=== PATIENT | female | born 1950 | race Caucasian/White ===

== ENCOUNTER 2017-12-06 17:51 | Emergency (ER) | payer MEDICARE ==
--- NOTE | 2017-12-06 18:07 | ERPHSYRPT ---
- History of Present Illness Time Seen by Provider: 12/06/17 18:04 Source: patient, family Exam Limitations: no limitations Patient Subjective Stated Complaint: pt states last pm she tripped over her dog and injured left hand and wrist. Triage Nursing Assessment: pt pink, warm, dry. left hand swollen. radial pulse present. Physician History: pt states last pm she tripped over her dog and injured left hand and wrist. Occurred: yesterday Method of Injury: fell Quality: intermittent Severity of Pain-Max: moderate Severity of Pain-Current: moderate Extremities Pain Location: forearm: left, wrist: left, hand: left Modifying Factors: Improves With: cold therapy Associated Symptoms: none Allergies/Adverse Reactions: niacin Allergy (Verified 12/06/17 18:03) Hx Tetanus, Diphtheria Vaccination/Date Given: Yes (up to date) Hx Influenza Vaccination/Date Given: No Hx Pneumococcal Vaccination/Date Given: No Immunizations Up to Date: Yes - Review of Systems Constitutional: No Symptoms Musculoskeletal: Deformity (left hand and wrist), Fall, Injury, Joint Redness, Joint Pain, Joint Swelling Skin: No Symptoms Neurological: No Symptoms - Past Medical History Pertinent Past Medical History: No - Past Surgical History Past Surgical History: No - Social History Smoking Status: Current every day smoker How long have you smoked: 40 Exposure to second hand smoke: No Drug Use: none Patient Lives Alone: No - Female History Hx Now: No - Nursing Vital Signs Nursing Vital Signs: Initial Vital Signs Temperature 98.8 F 12/06/17 18:02 Pulse Rate 84 12/06/17 18:02 Respiratory Rate 20 12/06/17 18:02 Blood Pressure 132/78 12/06/17 18:02 O2 Sat by Pulse Oximetry 97 12/06/17 18:02 Pain Scale Pain Intensity 8 - Physical Exam General Appearance: no apparent distress Eyes, Ears, Nose, Throat Exam: normal ENT inspection Elbow/Forearm Exam: soft tissue tenderness Wrist Exam: bone tenderness, deformity, limited ROM, soft tissue tenderness, swelling Hand Exam: soft tissue tenderness SpO2: 97 Oxygen Delivery: Room Air Procedures - Splinting Location of Splint: Left Type of Splint: Orthoglass Short Arm Splint Splint Applied By: ED Nurse Pre-Proc Neuro Vasc Exam: normal Post-Proc Neuro Vasc Exam: neurovascular intact - Course Nursing assessment & vital signs reviewed: Yes - Radiology Exams Left Hand X-ray Interpretation: Reviewed by me Forearm X-ray Interpretation: Reviewed by me Left Wrist X-ray Interpretation: Reviewed by me, Non-displaced Fracture Ordered Tests: Active Orders 24 hr Category Date Time Status Cold Application STAT Care 12/06/17 18:01 Active FOREARM Stat Exams 12/06/17 18:04 Ordered HAND (MINIMUM 3 VIEWS) Stat Exams 12/06/17 18:04 Ordered WRIST (MIN 3 VIEWS) Stat Exams 12/06/17 18:04 Ordered - Progress Progress: unchanged, pain not gone completely Counseled pt/family regarding: diagnosis, need for follow-up, rad results - Departure Time of Disposition: 18:26 Departure Disposition: Home Clinical Impression: Colles' fracture of left radius Qualifiers: Encounter type: initial encounter Fracture type: closed Qualified Code(s): S52.532A - Colles' fracture of left radius, initial encounter for closed fracture Condition: Stable Critical Care Time: No Referrals: KYLE COUCH [Primary Care Provider] - Instructions: Wrist Fracture Additional Instructions: LOLY LEWIS was seen on 12/06/17 n the Emergency Room. At that time you were treated for an emergent condition, during your visit Laboratory, Radiology and/or other procedures may have been ordered. It is very important that you follow-up with your Primary Care Physician KYLE COUCH within the next 24-48 hours to review your Emergency Room visit and the final results of testing that was ordered. Some test results such as Urine Cultures, Blood Cultures, and other cultures if ordered will not be finalized for 24-48 hours. If you do not have a Primary Care Provider please call the medical records department at [phone] to obtain a copy of your results or you may sign into our patient portal to obtain these results by visiting us @ [email or web address] and completing the following steps: 1. Click on the Patient Portal link 2. Click the Patient Self Enrollment Link to complete the enrollment form and entering your 3. Once the enrollment form is completed you will receive an email with a temporary ID and password at the email address you provided. 4. Next choose a user name and password. Your user name must be at least 4 characters long and your password must be at least 4 characters long. 5. Choose a security question from the list and provide your answer to the question. If you already have signed into the Health Portal you may access your Health Care Information 01/06 by the following steps: 1. Login to our website @ [email or web address] 2. Enter your original user name and password. FAQS The [facility] Health Portal is an online tool that contains your Lab Results, Radiology Reports, Visit History, Discharge Instructions and Health Summary Lab and Radiology Results will not be available for 72 hours on the portal. The Portal is a secure site, passwords are encryted and URLs are re-written so they cannot be copied and pasted. You and authorized family members are the only ones who can access your Portal. Also there is a timeout feature that protects your information if you leave the Portal page open. If you have technical difficulty please use the Contact Us link on the page this will allow you to submit any questions you have regarding the Portal or you may contact the Medical Record Department at [phone]. Prescriptions: Naproxen 375 mg [Naprosyn 375 mg] 375 mg PO Q8H #30 tablet
[2017-12-06 18:50] VITALS: BP 125/84; PULSE 80; O2SAT 96
--- NOTE | 2017-12-06 20:57 | XRAY ---
Indication: Pain and swelling following fall. Comparison: None 2 views of the left forearm demonstrates slightly impacted transverse fracture involving the distal metadiaphysis of the radius with soft tissue swelling and old nonunited ulnar styloid fracture. No other bony, articular, or soft tissue abnormalities.
--- NOTE | 2017-12-06 20:59 | XRAY ---
Indication: Pain and swelling following fall. Comparison: None 3 views of the left wrist demonstrates slightly impacted transverse fracture involving the distal metadiaphysis of the radius with soft tissue swelling, old nonunited ulnar styloid fracture, and old 5th proximal phalanx fracture. No other bony, articular, or soft tissue abnormalities.
--- NOTE | 2017-12-06 20:59 | XRAY ---
Indication: Pain and swelling following fall. Comparison: None 3 views of the left hand demonstrates slightly impacted transverse fracture involving the distal metadiaphysis of the radius with soft tissue swelling, old nonunited ulnar styloid fracture, and old 5th proximal phalanx fracture. No other bony, articular, or soft tissue abnormalities.
== END 2017-12-06 18:50 | disposition home or self-care (01) ==
LOC: ED 17:51
PROC: 2W3DX1Z Immobilization of Left Lower Arm using Splint (ICD-10-PCS; principal; 2017-12-06)
DX: S52.532A Colles' fracture of left radius, initial encounter for closed fracture (principal); W01.0XXA Fall on same level from slipping, tripping and stumbling without subsequent striking against object, initial encounter; Y92.9 Unspecified place or not applicable; Y99.9 Unspecified external cause status
CPT/HCPCS: 29126; 73090; 73110; 73130; 99283

== ENCOUNTER 2017-12-09 13:55 | Emergency (ER) | payer MEDICARE ==
--- NOTE | 2017-12-09 14:55 | ERPHSYRPT ---
- History of Present Illness Time Seen by Provider: 12/09/17 14:36 Source: patient Exam Limitations: no limitations Patient Subjective Stated Complaint: pain under left arm pt states she fell 3 days ago injuring area was seen in er though states pain under arm to ribs is getting worse. pt states hurts to take a deep breath Triage Nursing Assessment: to er c/o inury to left rib area. pt states fell 3 days ago and pain is increasing. pt has tenderness noted just below left axillary with no bruising noted. pt p/w/d resp easy and non labored. Physician History: 67-year-old white female who denies significant past medical history who was seen here on December 06, 2017 after having a fall was noted to have impacted transverse fractures involving the distal metaphysis of the radius of the left hand and an old ununited ulnar styloid fracture she also had an old fifth proximal phalanx fracture all on x-rays which were obtained on December 06, 2017 Patient was given a prescription for Naprosyn she states she did not fill this She arrives, her OCL is dirty on the left hand he states her left hand hurts and left forearm hurts. Patient also states she is having pain in her left ribs with breathing and movement and palpation. Past medical history patient denies. Past surgical history patient denies. Timing/Duration: day(s) (3 DAYS AGO) Severity: moderate Modifying Factors: Improves With: other (patient was given a prescription for Naprosyn but did not fill it) Associated Symptoms: other (pain left ribs left forearm left hand), No nausea, No vomiting, No abdominal pain, No shortness of breath, No heartburn, No diaphoresis, No cough, No chills, No chest pain, No fever, No headaches, No loss of appetite, No malaise, No rash, No syncope, No seizure, No weakness Allergies/Adverse Reactions: niacin Allergy (Verified 12/06/17 18:03) Hx Tetanus, Diphtheria Vaccination/Date Given: Yes (up to date) Hx Influenza Vaccination/Date Given: No Hx Pneumococcal Vaccination/Date Given: No - Review of Systems Constitutional: No Fever, No Chills Eyes: No Symptoms Ears, Nose, & Throat: No Symptoms Respiratory: Other (left rib pain), No Cough, No Dyspnea Cardiac: No Chest Pain, No Edema, No Syncope Abdominal/Gastrointestinal: No Abdominal Pain, No Nausea, No Vomiting, No Diarrhea Genitourinary Symptoms: No Dysuria Skin: Other (left hand pain left forearm pain left wrist pain) Neurological: No Dizziness, No Focal Weakness, No Sensory Changes Psychological: No Symptoms Endocrine: No Symptoms All Other Systems: Reviewed and Negative - Past Medical History Pertinent Past Medical History: No - Past Surgical History Past Surgical History: Yes Other Surgical History: unknown abd surgery - Social History Smoking Status: Current every day smoker How long have you smoked: 40 Exposure to second hand smoke: No Drug Use: none Patient Lives Alone: No - Nursing Vital Signs Nursing Vital Signs: Pain Scale Pain Intensity 10 - Physical Exam General Appearance: other (elderly-appearing white female alert oriented 3) Eye Exam: PERRL/EOMI Ears, Nose, Throat Exam: normal ENT inspection, TMs normal, pharynx normal, moist mucous membranes Neck Exam: normal inspection, non-tender, supple, full range of motion Respiratory Exam: normal breath sounds, other (pain with deep breathing left chest pain with palpation left chest) Cardiovascular Exam: regular rate/rhythm, normal heart sounds, normal peripheral pulses Gastrointestinal/Abdomen Exam: soft, normal bowel sounds, No tenderness, No mass Back Exam: normal inspection, normal range of motion, No CVA tenderness, No vertebral tenderness Extremity Exam: normal inspection, normal range of motion, pelvis stable Neurologic Exam: alert, oriented x 3, cooperative, normal mood/affect, nml cerebellar function, nml station & gait, sensation nml, No motor deficits Skin Exam: normal color, warm, dry, No rash Lymphatic Exam: No adenopathy SpO2 Interpretation: normal (98%) - Course Nursing assessment & vital signs reviewed: Yes - Radiology Exams Left Hand X-ray Interpretation: Discussed w/ radiologist, Other (x-ray left hand: Stable fractures involving the distal metadiaphysisof the radius and fifth proximal phalanx with new casting material. Also stable old nonunited ulnar styloid fracture. No New bony, articular, or soft tissue abnormalities.) Left Forearm X-ray Interpretation: Discussed w/ radiologist (X-ray left forearm distal radial and ulnar styloid fractures unchanged with respect to left hand exam December 06, 2017.no other bony, articular, or soft tissue abnormalities) Left Wrist X-ray Interpretation: Discussed w/ radiologist (X-ray left wrist: Distal radial , ulnar styloid and proximal fifth phalanx fracture unchanged with respect to left hand exam December 06, 2017.new overlyingCasting material.no other bony, articular, or soft tissue abnormalies) Chest X-ray Interpretation: Discussed w/ radiologist (chest x-ray: Impression: Stable , nonacute chest with chronic features) Left Ribs X-ray Interpretation: Discussed w/ radiologist (x-ray left ribs: Very minimally displaced acute fractures involving the lateral second/fourth/fifth/seventh ribs. Elsewhere mild osteopenia. Mild spinal degenerative spondylosis. And right lung base calcified granuloma) Ordered Tests: Active Orders 24 hr Category Date Time Status Splint STAT Care 12/09/17 16:08 Active CHEST 1 VIEW (PORTABLE) Stat Exams 12/09/17 14:50 Completed FOREARM Stat Exams 12/09/17 14:46 Completed HAND (MINIMUM 3 VIEWS) Stat Exams 12/09/17 14:46 Completed RIBS UNILATERAL Stat Exams 12/09/17 15:15 Completed WRIST (MIN 3 VIEWS) Stat Exams 12/09/17 14:46 Completed - Progress Progress: improved Progress Note: 12/09/17 14:53 This is a 67-year-old white female who arrives with complaint of pain in her left ribs left forearm left wrist left hand after falling 3 days ago. She was seen in this emergency room splint was placed on her left upper extremity left hand. She states she is here to have her hand rechecked she has sought follow-up with her family doctor or orthopedist she also states she is having pain in her left lateral ribs which can occur with breathing and moving and palpation. She was given a prescription for Naprosyn [address] Humphries she did not fill this medication. Will go ahead and obtain x-ray of the left ribs chest x-ray x-ray left forearm left hand left wrist. Anticipate will have to replace patient's OCL. 12/09/17 16:16 X-ray of the patient's left wrist left forearm left hand redemonstrates fractures of the distal radius ulnar styloid and proximal fifth phalanx Patient also with the rib fractures involving the left second/fourth/fifth/ seventh ribs. Patient's splint is covered in soot, will replace the splint it does appear that it has been pushed around somewhat. Will go ahead and write for [employer] for pain for this patient she has been advised to follow-up with [facility] Orth O clinic for her distal radius. She is also advised to follow-up with her family doctor. She does state that she has a doctor and Leo she might consider to follow- up with. Will give patient a minute limited amount of [place] for pain. - Departure Time of Disposition: 16:18 Departure Disposition: Home Clinical Impression: Accidental fall Qualifiers: Encounter type: subsequent encounter Qualified Code(s): W19.XXXD - Unspecified fall, subsequent encounter Left radial fracture Qualifiers: Encounter type: subsequent encounter Radius location: distal Fracture type: closed Fracture morphology: unspecified fracture morphology Fracture healing: with routine healing Qualified Code(s): S52.502D - Unspecified fracture of the lower end of left radius, subsequent encounter for closed fracture with routine healing Fracture of ulnar styloid Qualifiers: Encounter type: subsequent encounter Fracture type: closed Fracture alignment: nondisplaced Laterality: left Fracture healing: with nonunion Qualified Code(s) : S52.615K - Nondisplaced fracture of left ulna styloid process, subsequent encounter for closed fracture with nonunion Phalanx, proximal fracture of finger Qualifiers: Encounter type: subsequent encounter Finger: little finger Fracture type: closed Fracture alignment: nondisplaced Laterality: left Fracture healing: with routine healing Qualified Code(s): S62.647D - Nondisplaced fracture of proximal phalanx of left little finger, subsequent encounter for fracture with routine healing Multiple rib fractures Qualifiers: Encounter type: initial encounter Fracture type: closed Laterality: left Qualified Code(s): S22.42XA - Multiple fractures of ribs, left side, initial encounter for closed fracture Condition: Fair Critical Care Time: No Referrals: DOCTOR,NO FAMILY [Primary Care Provider] - Additional Instructions: Return home Ice and elevate your left hand 24-48 hours. [place] 5/325 #12 one orally every 4-6 hours as needed for pain. Cold packs to left ribs 24-48 hours. Avoid strenuous bending twisting lifting pushing pulling. Follow-up with your family doctor (list) Follow-up with [facility] orthopedic clinic. Return for acute distress or for severe symptoms Prescriptions: Hydrocodone/Acetaminophen [[place] 5-325 Tablet] 1 tab PO Q4-6HPRN PRN #12 tablet MDD 6 tablets PRN Reason: Pain
--- NOTE | 2017-12-09 15:29 | XRAY ---
Indication: Left-sided pain following fall 3 days ago. Comparison: October 27, 2016. Portable chest remains hyperinflated and clear with right base calcified granuloma. Heart and mediastinal structures within normal limits. Bony thorax intact again with mild osteopenia and degenerative changes. Impression: Stable nonacute chest with chronic features.
--- NOTE | 2017-12-09 15:31 | XRAY ---
Indication: Pain following fall 3 days ago. Comparison: None 2 views of the left ribs demonstrates very minimally displaced acute fractures involving the lateral 2nd/4th/5th/7th ribs. Elsewhere mild osteopenia, mild spinal degenerative spondylosis, and right lung base calcified granuloma.
--- NOTE | 2017-12-09 15:33 | XRAY ---
Indication: Pain following fall 3 days ago. Comparison: December 06, 2017. 3 views of the left hand demonstrates stable fractures involving the distal metadiaphysis of the radius and 5h proximal phalanx with new casting material. Also stable old nonunited ulnar styloid fracture. No new bony, articular, or soft tissue abnormalities.
--- NOTE | 2017-12-09 15:35 | XRAY ---
Indication: Pain following fall 3 days ago. Comparison: None. 2 views of the left forearm demonstrates distal radial and ulnar styloid fractures unchanged with respect to left hand exam December 06, 2017. New overlying casting material. No other bony, articular, or soft tissue abnormalities.
--- NOTE | 2017-12-09 15:48 | XRAY ---
Indication: Pain following fall 3 days ago. Comparison: None. 3 views of the left wrist demonstrates distal radial, ulnar styloid, and proximal 5h phalanx fractures unchanged with respect to left hand exam December 06, 2017. New overlying casting material. No other bony, articular, or soft tissue abnormalities.
[2017-12-09] MEDS ORDERED: NORCO 5/325 MG PO ONE (16:10)
[2017-12-09] MEDS ORDERED: NORCO 5/325 MG ONE (16:23)
[2017-12-09 16:42] VITALS: BP 135/79; PULSE 74
== END 2017-12-09 16:40 | disposition home or self-care (01) ==
LOC: ED 13:55
DX: S52.502D Unspecified fracture of the lower end of left radius, subsequent encounter for closed fracture with routine healing (principal); S52.615K Nondisplaced fracture of left ulna styloid process, subsequent encounter for closed fracture with nonunion; S62.647D Nondisplaced fracture of proximal phalanx of left little finger, subsequent encounter for fracture with routine healing; S22.42XA Multiple fractures of ribs, left side, initial encounter for closed fracture; W19.XXXD Unspecified fall, subsequent encounter; M85.88 Other specified disorders of bone density and structure, other site
CPT/HCPCS: 71045; 71100; 73090; 73110; 73130; 99284; L1830; A9270-GY

== ENCOUNTER 2020-01-30 13:00 | Emergency (ER) | payer MEDICARE ==
--- NOTE | 2020-01-30 14:00 | XRAY ---
Indication: Posterior head injury following fall 2 days ago. Multiple contiguous axial images obtained through the head without contrast. Comparison: None Age-appropriate global atrophy and minimal periventricular degenerative micro-ischemia bilaterally. No acute intracranial hemorrhage, abnormal extra-axial fluid collection, or mass effect. Fourth ventricle is midline without hydrocephalus. Bony calvarium intact. Visualized paranasal sinuses and mastoid air cells are clear. Impression: Nonacute senile brain.
--- NOTE | 2020-01-30 14:01 | XRAY ---
Indication: Pain following fall 2 days ago. Comparison: None 2 views of the right forearm demonstrates minimally displaced comminuted fracture distal metadiaphysis of the radius with soft tissue swelling. Incidental tiny lateral epicondyle heterotopic calcifications presumed from old injury/inflammation. No other bony, articular, or soft tissue abnormalities.
--- NOTE | 2020-01-30 14:01 | XRAY ---
Indication: Pain following fall 2 days ago. Comparison: None 3 views of the right hand demonstrates minimally displaced comminuted fracture distal metadiaphysis of the radius with soft tissue swelling. No other bony, articular, or soft tissue abnormalities.
[2020-01-30 14:04] VITALS: BP 143/86; PULSE 76; O2SAT 98
[2020-01-30] MEDS ORDERED: NORCO 5/325 MG PO ONE (14:07)
[2020-01-30] MEDS ORDERED: NORCO 5/325 MG ONE (14:17)
--- NOTE | 2020-01-30 14:35 | ERPHSYRPT ---
- History of Present Illness Time Seen by Provider: 01/30/20 13:20 Patient Subjective Stated Complaint: pt reports yesterday she was walking her dog on a leash when the dog took off after another person outside causing her to fall. pt reports the dog drug her on the ground. pt reports she is sore all over with an injury to her right lower arm. pt reports pain to the hand that radiates to the mid forearm. pt denies any LOC or other injury. Triage Nursing Assessment: pt is aox3, pupils perrl, afebrile, resps easy and non labored, radial pulses strong and equal, cap refill < 3 seconds, pt skin warm dry. significant swelling to the right hand, pt is unable to close hand fully. ROM to fingers is limited due to swelling. bruising noted to the hand that radiates up to the bicep. pt hand appears dusky. hand is warm. Physician History: Is a 69-year-old white female who was walking her dog when the dog saw some strangers and pulled on the leash causing her to fall and hit her head on some rocks and injured her right arm. She does not believe she was unconscious she is not on blood thinners. This did occur several days ago. Occurred: yesterday Method of Injury: fell Quality: intermittent Severity of Pain-Max: moderate Severity of Pain-Current: moderate Extremities Pain Location: forearm: right, wrist: right, hand: right Modifying Factors: Improves With: movement Associated Symptoms: none Allergies/Adverse Reactions: niacin Allergy (Verified 01/30/20 13:35) Hx Tetanus, Diphtheria Vaccination/Date Given: Yes Hx Influenza Vaccination/Date Given: No Hx Pneumococcal Vaccination/Date Given: No Immunizations Up to Date: Yes Travel Risk - International Travel Have you traveled outside of the country in past 3 weeks: No Have you or anyone close to you been diagnosed with or: No Do your reside in a community with a known COVID-19 case?: No - Coronavirus Screening Has patient experienced Coronavirus symptoms: No - Review of Systems Constitutional: No Fever, No Chills Eyes: No Symptoms Ears, Nose, & Throat: No Symptoms Respiratory: No Cough, No Dyspnea Cardiac: No Chest Pain, No Edema, No Syncope Abdominal/Gastrointestinal: No Abdominal Pain, No Nausea, No Vomiting, No Diarrhea Genitourinary Symptoms: No Dysuria Musculoskeletal: Deformity, Fall, Injury, Joint Swelling, No Back Pain, No Neck Pain Skin: No Rash Neurological: No Dizziness, No Focal Weakness, No Sensory Changes Psychological: No Symptoms Endocrine: No Symptoms All Other Systems: Reviewed and Negative - Past Medical History Pertinent Past Medical History: No - Past Surgical History Past Surgical History: Yes Female Surgical History: Tubal Ligation Other Surgical History: unknown abd surgery - Social History Smoking Status: Current every day smoker How long have you smoked: 40 Exposure to second hand smoke: No Drug Use: none Patient Lives Alone: No - Nursing Vital Signs Nursing Vital Signs: Initial Vital Signs Temperature 98 F 01/30/20 13:14 Pulse Rate 87 01/30/20 13:14 Respiratory Rate 20 01/30/20 13:14 Blood Pressure 122/78 01/30/20 13:14 O2 Sat by Pulse Oximetry 97 01/30/20 13:14 Pain Scale Pain Intensity 10 - Physical Exam General Appearance: alert Eyes, Ears, Nose, Throat Exam: moist mucous membranes Neck Exam: non-tender, supple Cardiovascular/Respiratory Exam: chest non-tender, normal breath sounds, regular rate/rhythm, no respiratory distress Abdominal Exam: non-tender, No guarding Back Exam: normal inspection, No vertebral tenderness Shoulder Exam: normal inspection Elbow/Forearm Exam: bone tenderness (distal forearm right) Wrist Exam: bone tenderness, deformity (Tenderness and deformity of the right wrist) Hand Exam: swelling Neuro/Tendon Exam: normal sensation, normal motor functions Mental Status Exam: alert, oriented x 3, cooperative Skin Exam: normal color, warm, dry SpO2 Interpretation: normal SpO2: 98 O2 Delivery: Room Air Procedures - Splinting Location of Splint: Right, Wrist, Forearm Type of Splint: Orthoglass Short Arm Splint Splint Applied By: ED Nurse Pre-Proc Neuro Vasc Exam: normal Post-Proc Neuro Vasc Exam: neurovascular intact Progress: Post splinting was examined by the physician. - Course Nursing assessment & vital signs reviewed: Yes - Radiology Exams Wrist X-ray Interpretation: Interpreted by me, Other (X-rays of the forearm wrist and hand show fracture of the distal radius comminuted minimal angulation comminuted slightly impacted angulated distal right radius fracture) - CT Exams Head CT Interpretation: Negative Ordered Tests: Active Orders 24 hr Category Date Time Status FOREARM Stat Exams 01/30/20 13:32 Completed HAND (MINIMUM 3 VIEWS) Stat Exams 01/30/20 13:32 Completed HEAD WITHOUT CONTRAST [CT] Stat Exams 01/30/20 13:31 Completed Medication Summary Discontinued Medications Generic Name Dose Route Start Last Admin Trade Name Freq PRN Reason Stop Dose Admin Hydrocodone Bitart/Acetaminophen 1 tab 01/30/20 14:07 01/30/20 14:20 [place] 5/325 Mg PO 01/30/20 14:08 1 tab STAT ONE Administration Hydrocodone Bitart/Acetaminophen Confirm 01/30/20 14:17 [place] 5/325 Mg Administered 01/30/20 14:18 Dose 1 tab .ROUTE .STK-MED ONE - Progress Progress: improved - Departure Departure Disposition: Home Clinical Impression: Right wrist fracture Condition: Stable Critical Care Time: No Referrals: DOCTOR,NO FAMILY [Primary Care Provider] - Additional Instructions: Referred to Ortho clinic Prescriptions: Hydrocodone/APAP 5-325 Tab^^^ [[place] 5-325 Tablet^^^] 1 tab PO Q6HPRN PRN #10 tablet MDD 6 PRN Reason: Pain
== END 2020-01-30 14:44 | disposition home or self-care (01) ==
LOC: ED 13:00
DX: S62.101A Fracture of unspecified carpal bone, right wrist, initial encounter for closed fracture (principal); M79.631 Pain in right forearm; S09.90XA Unspecified injury of head, initial encounter; W01.198A Fall on same level from slipping, tripping and stumbling with subsequent striking against other object, initial encounter; Y93.K1 Activity, walking an animal; Y92.89 Other specified places as the place of occurrence of the external cause
CPT/HCPCS: 29126; 70450; 73090; 73130; 99284; A9270-GY

== ENCOUNTER 2020-03-29 15:34 | Emergency (ER) | payer MEDICARE ==
--- NOTE | 2020-03-29 15:46 | ERPHSYRPT ---
- History of Present Illness Time Seen by Provider: 03/29/20 15:46 Historian: patient Exam Limitations: no limitations Physician History: This is a 69-year-old thin female who states that she has been nauseated since yesterday. Patient denied to me that she been vomiting but then told the nurse that she did vomit. Patient states she is has no pain symptoms anywhere. She has no chest pain, she has no shortness of breath, she has no abdominal pain. She is had no diarrhea. She states that she is not on any medication. And arrives dirty and disheveled. Patient states that she has been working out in her yard and dirt in the last couple of days. Patient does not want any work- up of any kind. She refuses an IV, she refuses intravenous fluids, she refuses EKG or any kind of radiographic studies. She does not want any blood drawn or any urine samples evaluated. Only wants some relief of her symptoms of nausea. Timing/Duration: yesterday Activities at Onset: none Quality: other (No pain) Pain Radiation: no radiation Severity of Pain-Max: none Severity of Pain-Current: none Modifying Factors: Improves With: nothing Associated Symptoms: nausea, No chest pain, No diarrhea, No fever/chills, No headache, No heartburn, No loss of appetite, No shortness of breath Previous symptoms: no prior history Allergies/Adverse Reactions: niacin Allergy (Verified 03/29/20 16:13) Hx Tetanus, Diphtheria Vaccination/Date Given: Yes Hx Influenza Vaccination/Date Given: No Hx Pneumococcal Vaccination/Date Given: No Travel Risk - International Travel Have you traveled outside of the country in past 3 weeks: No Have you or anyone close to you been diagnosed with or: No Do your reside in a community with a known COVID-19 case?: Yes If Yes where:: [facility] - Coronavirus Screening Has patient experienced Coronavirus symptoms: No - Review of Systems Constitutional: No Symptoms Eyes: No Symptoms Ears, Nose, & Throat: No Symptoms Respiratory: No Symptoms Cardiac: No Symptoms Abdominal/Gastrointestinal: Nausea Genitourinary Symptoms: No Symptoms Musculoskeletal: No Symptoms Skin: No Symptoms Neurological: No Symptoms Psychological: No Symptoms Endocrine: No Symptoms Hematologic/Lymphatic: No Symptoms Immunological/Allergic: No Symptoms All Other Systems: Reviewed and Negative - Past Medical History Pertinent Past Medical History: No Neurological History: No Pertinent History ENT History: No Pertinent History Cardiac History: No Pertinent History Respiratory History: No Pertinent History Endocrine Medical History: No Pertinent History Musculoskeletal History: No Pertinent History GI Medical History: No Pertinent History History: No Pertinent History Psycho-Social History: No Pertinent History Female Reproductive Disorders: No Pertinent History - Past Surgical History Past Surgical History: Yes Neuro Surgical History: No Pertinent History Cardiac: No Pertinent History Respiratory: No Pertinent History Gastrointestinal: No Pertinent History Genitourinary: No Pertinent History Musculoskeletal: No Pertinent History Female Surgical History: Tubal Ligation Other Surgical History: unknown abd surgery - Social History Smoking Status: Current every day smoker How long have you smoked: 40 Exposure to second hand smoke: No Drug Use: none Patient Lives Alone: No - Nursing Vital Signs Nursing Vital Signs: Initial Vital Signs Temperature 97.0 F 03/29/20 15:57 Pulse Rate 93 H 03/29/20 15:57 Respiratory Rate 18 03/29/20 15:57 Blood Pressure 144/87 03/29/20 15:57 O2 Sat by Pulse Oximetry 97 03/29/20 15:57 Pain Scale Pain Intensity 0 - Physical Exam General Appearance: no apparent distress, alert, anxiety, cachetic, other ( Somewhat disheveled with dirty hands and feet as if she was in dirt and mild and did not clean herself.) Eye Exam: PERRL/EOMI, eyes nml inspection Ears, Nose, Throat Exam: TMs normal, dry mucous membranes Neck Exam: normal inspection, non-tender, supple, full range of motion Respiratory Exam: normal breath sounds, lungs clear, airway intact, No chest tenderness, No respiratory distress Cardiovascular Exam: regular rate/rhythm, normal heart sounds, normal peripheral pulses Gastrointestinal/Abdomen Exam: soft, normal bowel sounds, No tenderness, No guarding, No rebound Pelvic Exam: not done Rectal Exam: not done Back Exam: normal inspection, normal range of motion, No CVA tenderness Extremity Exam: normal inspection, normal range of motion, pelvis stable Neurologic Exam: alert, oriented x 3, cooperative, 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 Skin Exam: normal color, warm, dry Lymphatic Exam: No adenopathy SpO2 Interpretation: normal O2 Delivery: Room Air - Course Nursing assessment & vital signs reviewed: Yes Ordered Tests: Medication Summary Discontinued Medications Generic Name Dose Route Start Last Admin Trade Name Freq PRN Reason Stop Dose Admin Famotidine 20 mg 03/29/20 16:15 03/29/20 16:27 Pepcid 20 Mg PO 03/29/20 16:16 20 mg STAT ONE Administration Famotidine Confirm 03/29/20 16:25 Pepcid 20 Mg Administered 03/29/20 16:26 Dose 20 mg .ROUTE .STK-MED ONE Ondansetron HCl 4 mg 03/29/20 16:15 03/29/20 16:27 Zofran Odt 4 Mg PO 03/29/20 16:16 4 mg STAT ONE Administration Ondansetron HCl Confirm 03/29/20 16:25 Zofran Odt 4 Mg Administered 03/29/20 16:26 Dose 4 mg .ROUTE .STK-MED ONE - Progress Progress: unchanged Progress Note: 03/29/20 16:42 Patient does not want any radiographic studies, and the lab work drawn, no urine studies, no IV placed, no intravenous fluids. She only wants treatment for her symptoms of nausea. I told her that there is a risk that there is something very severe in an emergent going on. I could not guarantee that there is not an emergency process that could actually kill her going on. Patient states that she has to leave she has an old friend that is waiting for her. She says that she is as healthy has a horse. She states that she would return to the emergency department if she was feeling worse. She will also follow-up with her primary care physician. She is going to sign the AGAINST MEDICAL ADVICE and refusal of treatment and intervention form. Counseled pt/family regarding: diagnosis, need for follow-up - Departure Departure Disposition: Home, AMA Clinical Impression: Nausea, Gastritis Condition: Stable Critical Care Time: No Referrals: DOCTOR,NO FAMILY [Primary Care Provider] - Additional Instructions: Drink plenty of fluids. Avoid fatty greasy spicy foods. Follow-up with your primary care physician for further management. Return to the emergency department if your symptoms worsen. Prescriptions: Ondansetron ODT 4 MG [Zofran Odt 4 mg] 4 mg PO Q6H PRN PRN #10 tab.rapdis PRN Reason: Vomiting Famotidine 20 mg [Pepcid 20 MG] 20 mg PO DAILY #10 tablet
[2020-03-29 16:13] VITALS: BP 144/87
[2020-03-29] MEDS ORDERED: Pepcid 20 MG PO ONE (16:15)
[2020-03-29] MEDS ORDERED: ZOFRAN ODT 4 MG PO ONE (16:15)
[2020-03-29] MEDS ORDERED: Pepcid 20 MG ONE (16:25)
[2020-03-29] MEDS ORDERED: ZOFRAN ODT 4 MG ONE (16:25)
[2020-03-29 16:56] VITALS: PULSE 70; O2SAT 98
== END 2020-03-29 16:57 | disposition home or self-care (01) ==
LOC: ED 15:34
DX: R11.0 Nausea (principal); K29.70 Gastritis, unspecified, without bleeding; Z72.0 Tobacco use
CPT/HCPCS: 99283; Q0162; A9270-GY